=== PATIENT | female | born 1985 | race African-American/Black ===

== ENCOUNTER 2018-06-18 12:07 | Emergency (ER) | payer OTHER ==
[~2018-06-18] VITALS: Ht 162.6 cm; Wt 40.8 kg
[2018-06-18 12:29] VITALS: BP 103/71; Ht 162.6 cm; Wt 40.8 kg
== END 2018-06-18 13:11 | disposition home or self-care (01) ==
LOC: ED 12:07
DX: S90.862A Insect bite (nonvenomous), left foot, initial encounter (principal); S90.861A Insect bite (nonvenomous), right foot, initial encounter; L08.9 Local infection of the skin and subcutaneous tissue, unspecified; F41.9 Anxiety disorder, unspecified; W57.XXXA Bitten or stung by nonvenomous insect and other nonvenomous arthropods, initial encounter; Y93.89 Activity, other specified; Y92.89 Other specified places as the place of occurrence of the external cause; Y99.8 Other external cause status

== ENCOUNTER 2018-11-18 03:06 | Emergency (ER) | payer SELFPAY ==
[~2018-11-18] VITALS: Ht 160 cm; Wt 40.8 kg
[2018-11-18 03:11] VITALS: Ht 160 cm; Wt 40.8 kg
[2018-11-18 06:10] VITALS: BP 137/86
== END 2018-11-18 06:10 | disposition home or self-care (01) ==
LOC: ED 03:06
DX: S69.92XA Unspecified injury of left wrist, hand and finger(s), initial encounter (principal); X58.XXXA Exposure to other specified factors, initial encounter; Y93.89 Activity, other specified; Y92.89 Other specified places as the place of occurrence of the external cause; Y99.8 Other external cause status

== ENCOUNTER 2019-01-19 02:50 | Emergency (ER) | payer OTHER ==
[~2019-01-19] VITALS: Ht 162.6 cm; Wt 41.7 kg
[2019-01-19 02:55] VITALS: Ht 162.6 cm; Wt 41.7 kg
[2019-01-19 04:13] LABS: BASOPHIL % 0.4 % (0-2); PLATELET COUNT 249 x10^3mcL (130-400)
[2019-01-19 04:17] LABS: RED CELL DISTRIBUTION WIDTH 15.7 % (11.5-14.5)
[2019-01-19 04:22] LABS: CARBON DIOXIDE 24.5 mmol/L (21-32); CHLORIDE SERUM 102 mmol/L (98-107); CREATININE SERUM 0.7 mg/dL (0.6-1.0); GFR1 > 60 mL/min; GLUCOSE SERUM 110 mg/dL (74-106); POTASSIUM SERUM 3.3 mmol/L (3.5-5.1); SODIUM SERUM 136 mmol/L (136-145)
[2019-01-19 06:56] VITALS: BP 122/79
== END 2019-01-19 06:56 | disposition short-term general hospital (02) ==
LOC: ED 02:50
PROVIDERS: Emergency Medicine
DX: I96 Gangrene, not elsewhere classified (principal); P14.0 Erb's paralysis due to birth injury
CPT/HCPCS: J2543; J3370; J7050; Q0092